=== PATIENT | female | born 1995 | race Native Hawaiian/Other Pacific Islander ===

== ENCOUNTER → 2022-04-12 | Outpatient (CLI) | payer BC, OTHER ==
[2022-04-12 11:20] LABS: PLATELET COUNT 330 K/uL (152-353)
[2022-04-12 11:57] LABS: POTASSIUM 3.9 mmol/L (3.6-5.2)
== END ==
LOC: RAD 10:28
PROVIDERS: ATTEND Nurse Practitioner Family
DX: R07.81 Pleurodynia (principal); R06.09 Other forms of dyspnea
CPT/HCPCS: 36415; 80053; 85027; 93005